=== PATIENT | male | born 1990 | race American Indian/Alaskan Native ===

== ENCOUNTER 2024-12-28 00:48 | Inpatient (IN) | payer MEDICAID ==
[2024-12-28] MEDS ORDERED: Sodium Chloride 0.9% 10 ML Syringe FLUSH PRN (01:05)
[2024-12-28] MEDS: Benzonatate 100 MG Cap PO PRN (01:38)
[2024-12-28] MEDS: Albuterol 0.083% 2.5 MG/3 ML Neb Soln NEB PRN (01:39)
[2024-12-28 06:06] LABS: BASOPHILS ABSOLUTE AUTO 0.03 K/uL (0.00-0.10); BASOPHILS PERCENT AUTO 0.2 % (0.1-1.3); EOSINOPHILS PERCENT AUTO 0.1 % (0.0-5.4); HEMATOCRIT 40.1 % (38.4-49.7); HEMOGLOBIN 13.9 g/dL (12.9-16.9); IMMATURE GRAN PERCENT AUTO 1.4 % (0.0-0.7); LYMPHOCYTES ABSOLUTE AUTO 0.61 K/uL (0.8-3.3); LYMPHOCYTES PERCENT AUTO 4.2 % (11.4-47.7); MEAN CORPUSCULAR HEMOGLOBIN 28.4 pg (31.6-35.5); MEAN CORPUSCULAR HGB CONC 34.7 g/dL (31.6-35.5); MONOCYTES ABSOLUTE AUTO 0.21 K/uL (0.20-0.90); MONOCYTES PERCENT AUTO 1.4 % (3.3-12.6); NEUTROPHILS ABSOLUTE AUTO 13.63 K/uL (1.0-7.6); NEUTROPHILS PERCENT AUTO 92.7 % (40.0-78.1); PLATELET COUNT,PLT 187 K/uL (130-375); RED BLOOD CELL COUNT 4.89 M/uL (4.14-5.76); WHITE BLOOD CELL COUNT,WBC 14.7 K/uL (3.2-11.0)
[2024-12-28 06:19] LABS: EOSINOPHILS ABSOLUTE AUTO 0.01 K/uL (0.00-0.40)
[2024-12-28 06:21] LABS: CALCIUM 8.5 mg/dL (8.5-10.1); EST CRCL DRUG DOSING (CG) 109.81 mL/min; POTASSIUM,K 4.5 mmol/L (3.6-5.2)
[2024-12-28 06:24] LABS: ANION GAP 14.5 mmol/L (5.0-14.0)
[2024-12-28] MEDS: predniSONE 20 MG Tab PO SCH (07:48)
[2024-12-28] MEDS: Albuterol/Ipratropium 3.0-0.5 MG/3 ML Neb Soln NEB SCH (10:29)
[2024-12-28] MEDS: Sodium Chloride 0.9% 80 ML IV SCH (15:49)
[2024-12-28] MEDS: Iopamidol 612 MG/ML 100 ML Bottle IV SCH (15:49)
[2024-12-28] MEDS: cefTRIAXone 1 GM in Sodium Chloride 0.9% 50 ML IV SCH (16:36)
[2024-12-28] MEDS: Azithromycin 500 MG in Sodium Chloride 0.9% 250 ML IV SCH (17:13)
[2024-12-29] MEDS: Ibuprofen 600 MG Tab PO PRN (01:36)
[2024-12-29 06:00] LABS: HEMATOCRIT 38.5 % (38.4-49.7); HEMOGLOBIN 13.5 g/dL (12.9-16.9); MEAN CORPUSCULAR HEMOGLOBIN 29.3 pg (31.6-35.5); MEAN CORPUSCULAR HGB CONC 35.1 g/dL (31.6-35.5); MEAN CORPUSCULAR VOLUME 83.5 fL (81.4-99.0); RED BLOOD CELL COUNT 4.61 M/uL (4.14-5.76); WHITE BLOOD CELL COUNT,WBC 13.5 K/uL (3.2-11.0)
[2024-12-29 06:13] LABS: ANION GAP 7.6 mmol/L (5.0-14.0); CALCIUM 8.8 mg/dL (8.5-10.1); EST CRCL DRUG DOSING (CG) 109.81 mL/min; MAGNESIUM 1.8 mg/dL (1.8-2.4); POTASSIUM,K 3.9 mmol/L (3.6-5.2)
[2024-12-29] MEDS: Codeine/guaiFENesin 10-100 MG/5 ML Syrup 5 ML Cup PO PRN (21:05)
[2024-12-30 10:24] LABS: ANION GAP 9.4 mmol/L (5.0-14.0); CREATININE 1.1 mg/dL (0.8-1.3); EST CRCL DRUG DOSING (CG) 99.83 mL/min; POTASSIUM,K 4.2 mmol/L (3.6-5.2)
[2024-12-30 11:39] LABS: B PERTUSSIS/PARAPERTUSS SOURCE Nasal; BORD PARAPERTUSSIS BY PCR Not Detected; BORDETELLA PERTUSSIS BY PCR Not Detected
[2024-12-30] MEDS: FLU (Fluarix Triv) TS24-25(6MOS UP)/PF 45 MCG/0.5 ML Syringe IM ONE (11:48)
[2024-12-30] MEDS: Acetaminophen 325 MG Tab PO PRN (15:27)
== END 2024-12-31 11:55 | disposition home or self-care (01) | DRG 193 ==
LOC: JP.ICU 00:48
PROVIDERS: ADMIT Nurse Practitioner; ATTEND Hospitalist
DX: J18.9 Pneumonia, unspecified organism (principal); J96.01 Acute respiratory failure with hypoxia; J45.901 Unspecified asthma with (acute) exacerbation; Z79.51 Long term (current) use of inhaled steroids; Z98.890 Other specified postprocedural states; Z91.018 Allergy to other foods; Z87.891 Personal history of nicotine dependence
CPT/HCPCS: 36415; 71046; 71046-26; 71260; 71260-26; 80048; 83735; 84145; 85025; 85027; 87798; 90656; 94640; 99222; 99232; 99238; A9270-GY; G0008; J0456; J0696; J7050; J7512; J7620; Q9967